=== PATIENT | male | born 1965 | race Caucasian/White ===

== ENCOUNTER 2025-02-14 11:29 | Emergency (ER) | payer OTHER ==
[~2025-02-14] VITALS: Ht 167.6 cm; Wt 65.8 kg
[2025-02-14] MEDS ORDERED: KETO10TA2 PO (12:02)
[2025-02-14] MEDS ORDERED: KETOROLAC TROMETHAMINE 15 MG/ML VIAL ONE (12:19)
[2025-02-14] MEDS: KETOROLAC TROMETHAMINE 15 MG/ML VIAL IM ONE (12:27)
[2025-02-14 12:40] VITALS: BP 115/78; TEMP 98.3; O2SAT 98
== END 2025-02-14 13:07 | disposition home or self-care (01) ==
LOC: ER 11:29
DX: R07.89 Other chest pain (principal); R07.81 Pleurodynia
CPT/HCPCS: 99284; 96372; 93005; 71100; J1885